=== PATIENT | female | born 1950 | race Caucasian/White ===

== ENCOUNTER → 2023-05-12 12:04 | Outpatient (REF) | payer MEDICARE, SELFPAY ==
[2023-05-12 15:12] LABS: Vitamin D, 25-OH*** 43.4 ng/mL (30-80)
[2023-05-12 15:26] LABS: TSH 0.92 uIU/ml (0.47-4.68)
== END ==
LOC: HWLAB 12:04
PROVIDERS: ATTENDING PHYSICIAN Internal Medicine Endocrinology, Diabetes & Metabolism; FAMILY PHYSICIAN Family Medicine
DX: E04.2 Nontoxic multinodular goiter (principal); R73.03 Prediabetes; E55.9 Vitamin D deficiency, unspecified
CPT/HCPCS: 36415; 82306; 84443

== ENCOUNTER → 2023-05-23 08:25 | Outpatient (REF) | payer MEDICARE, SELFPAY | LOC: WDC 08:25 | PROVIDERS: ATTENDING PHYSICIAN Surgery; FAMILY PHYSICIAN Family Medicine | DX: R92.2 Inconclusive mammogram (principal) | CPT/HCPCS: 76641 ==

== ENCOUNTER → 2024-03-08 08:51 | Outpatient (REF) | payer MEDICARE, SELFPAY ==
[2024-03-08 12:10] LABS: % Basophils 0.4 % (0-2); % Eosinophils 1.1 % (0-6); % Immature Granulocytes 0.4 % (0-0.5); % Lymphocytes 8.9 % (20.5-51.1); % Monocytes 7.8 % (1.7-9.3); % Neutrophils 81.4 % (42.2-75.2); Absolute Eosinophils 0.1 10^3/uL (0-0.7); Absolute Lymphocytes 0.8 10^3/uL (1.2-3.4); Absolute Monocytes 0.7 10^3/uL (0.1-0.6); Absolute Neutrophils 7.6 10^3/uL (1.4-6.5); Hematocrit 49.9 % (37.0-47.0); Hemoglobin 17.3 g/dL (12.0-16.0); Mean Corp Hgb Conc. 34.7 g/dL (33.0-37.0); Mean Corpuscular Hgb 31.3 pg (27.0-31.0); Mean Corpuscular Volume 90.2 fL (81.0-99.0); Mean Platelet Volume 10.1 fL (7.4-10.4); Nucleated Red Blood Cells % 0 %; Platelet Count 200 10^3/uL (130-400); Red Blood Cell Count 5.53 10^6/uL (4.20-5.40); Red Cell Dist. Width 12.6 % (11.5-14.5); White Blood Cell Count 9.3 10^3/uL (4.8-10.8)
[2024-03-08 12:26] LABS: ALT (SGPT) 23 U/L (0-35); AST (SGOT) 30 U/L (14-36); Albumin 4.9 g/dl (3.5-5.0); Alkaline Phosphatase 108 U/L (38-126); Blood Urea Nitrogen 22 mg/dl (7-17); Calcium 9.9 mg/dl (8.4-10.2); Carbon Dioxide 33 mmol/L (22-30); Chloride 97 mmol/L (98-107); Glucose 134 mg/dl (70-99); HDL Cholesterol 56 mg/dl; LDL Cholesterol, Calculated 187 mg/dl; Potassium 3.6 mmol/L (3.5-5.1); Sodium 141 mmol/L (135-145); Total Bilirubin 1.5 mg/dl (0.2-1.3); Total Cholesterol 291 mg/dl (50-199); Total Protein 7.9 g/dl (6.3-8.2); Triglyceride 243 mg/dl (10-149); Very Low Density Lipoprotein 48 mg/dl (0-30); eGFR > 60.00
[2024-03-08 12:56] LABS: TSH 0.83 uIU/ml (0.47-4.68)
[2024-03-08 13:21] LABS: Urine Albumin Negative (Neg - Trace); Urine Bilirubin Negative (Negative); Urine Character Clear (Clear); Urine Color Yellow; Urine Glucose Negative (Negative); Urine Ketone Negative (Negative); Urine Leukocyte 1+ (Negative); Urine Nitrite Negative (Negative); Urine Occult Blood Negative (Negative); Urine Urobilinogen Negative (Neg - 1+)
[2024-03-08 14:36] LABS: Urine Amorphous Seen
[2024-03-08 14:39] LABS: Urine Red Blood Cell 0-2 /HPF (0-2)
[2024-03-08 14:41] LABS: Glycohemoglobin (HgbA1c) 6.1 % (4.0-5.6)
== END ==
LOC: HWLAB 08:51
PROVIDERS: ATTENDING PHYSICIAN Family Medicine
DX: R73.01 Impaired fasting glucose (principal); I10 Essential (primary) hypertension; Z00.00 Encounter for general adult medical examination without abnormal findings; E78.00 Pure hypercholesterolemia, unspecified; E03.9 Hypothyroidism, unspecified
CPT/HCPCS: 36415; 80053; 80061; 81003; 81015; 83036; 84443; 85025

== ENCOUNTER → 2024-06-18 09:57 | Outpatient (REF) | payer MEDICARE, SELFPAY ==
[2024-06-18 12:53] LABS: % Basophils 0.7 % (0-2); % Eosinophils 3.3 % (0-6); % Immature Granulocytes 0.3 % (0-0.5); % Lymphocytes 12.2 % (20.5-51.1); % Monocytes 10.7 % (1.7-9.3); % Neutrophils 72.8 % (42.2-75.2); Absolute Eosinophils 0.2 10^3/uL (0-0.7); Absolute Lymphocytes 0.7 10^3/uL (1.2-3.4); Absolute Monocytes 0.6 10^3/uL (0.1-0.6); Absolute Neutrophils 4.4 10^3/uL (1.4-6.5); Hematocrit 43.2 % (37.0-47.0); Hemoglobin 14.3 g/dL (12.0-16.0); Mean Corp Hgb Conc. 33.1 g/dL (33.0-37.0); Mean Corpuscular Hgb 30.3 pg (27.0-31.0); Mean Corpuscular Volume 91.5 fL (81.0-99.0); Mean Platelet Volume 10.3 fL (7.4-10.4); Nucleated Red Blood Cells % 0 %; Platelet Count 207 10^3/uL (130-400); Red Blood Cell Count 4.72 10^6/uL (4.20-5.40); Red Cell Dist. Width 13.2 % (11.5-14.5)
[2024-06-18 13:17] LABS: HDL Cholesterol 58 mg/dl; Iron 95 ug/dl (37-170); LDL Cholesterol, Calculated 168 mg/dl; Total Cholesterol 241 mg/dl (50-199); Triglyceride 79 mg/dl (10-149); Very Low Density Lipoprotein 15 mg/dl (0-30)
[2024-06-18 13:51] LABS: Ferritin 50.9 ng/ml (11.1-264.0)
[2024-06-18 14:06] LABS: Vitamin B12 539 pg/ml (239-931)
== END ==
LOC: HWLAB 09:57
PROVIDERS: ATTENDING PHYSICIAN Family Medicine
DX: D58.2 Other hemoglobinopathies (principal); E78.00 Pure hypercholesterolemia, unspecified; R71.8 Other abnormality of red blood cells; Z79.899 Other long term (current) drug therapy
CPT/HCPCS: 36415; 80061; 82607; 82728; 83540; 85025